=== PATIENT | female | born 2000 | race Caucasian/White ===

== ENCOUNTER 2021-01-03 11:32 | Emergency (ER) | payer MEDICAID, OTHER ==
[~2021-01-03] VITALS: Ht 167.6 cm; Wt 47.0 kg
[2021-01-03 14:16] LABS: BASO % 0.4 % (0.0-1.0); EOS # 0.2 10^3/uL (0.0-0.5); EOS % 1.7 % (0.0-3.0); HEMATOCRIT 42.3 % (36.0-47.0); HEMOGLOBIN 13.9 g/dl (12.0-15.5); LYMPH # 2.1 10^3/uL (1.5-5.0); LYMPH % 20.6 % (24.0-44.0); MEAN CORPUSCULAR HGB CONC 32.9 g/dl (32.0-36.5); MEAN CORPUSCULAR VOLUME 94.2 fl (80.0-96.0); MONO # 0.6 10^3/uL (0.0-0.8); MONO % 5.7 % (2.0-8.0); NEUTROPHILS # 7.4 10^3/uL (1.5-8.5); NEUTROPHILS % 71.3 % (36.0-66.0); PLATELET COUNT, AUTOMATED 281 10^3/uL (150-450); RED BLOOD COUNT 4.49 10^6/uL (4.00-5.40); WHITE BLOOD COUNT 10.4 10^3/uL (4.0-10.0)
[2021-01-03] MEDS ORDERED: ACETAMINOPHEN 500 MG TAB PO ONE (14:20)
[2021-01-03] MEDS ORDERED: KETOROLAC 30 MG/ML 1ML VIAL IM ONE ×2 (14:30→15:50)
[2021-01-03] MEDS ORDERED: PHEN-372 PO (15:16)
[2021-01-03] MEDS ORDERED: CIPR500T39 PO (15:16)
[2021-01-03] MEDS ORDERED: IBUP80TA PO (15:17)
[2021-01-03] MEDS ORDERED: METOCLOPRAMIDE 10 MG TAB PO ONE (15:25)
[2021-01-03 16:40] VITALS: BP 121/75
== END 2021-01-03 16:41 | disposition home or self-care (01) ==
LOC: M ED 11:32
DX: N10 Acute pyelonephritis (principal); N39.0 Urinary tract infection, site not specified; Z87.448 Personal history of other diseases of urinary system; Z88.2 Allergy status to sulfonamides
CPT/HCPCS: 80047; 81001; 84702; 85025; 87088; 87186; 96372; 99283; J1885